=== PATIENT | female | born 1970 | race Hispanic/Latino ===

== ENCOUNTER 2024-08-01 07:48 | Day surgery (SDC) | payer OTHER ==
[~2024-08-01] VITALS: Ht 162.6 cm; Wt 86.2 kg
[~2024-08-01 07:48] MED LIST: ACETAMIN500 M2 PO; ACETAMINOPHEN325 MG PO; FAMOTIDINE20 M3 PO; FLEXERIL5 M1 PO; GABAPENTIN100 MG PO; NAPROXEN EC500 MG PO; NAPROXEN500 MG PO; OMEPRAZOLE DR40 MG PO; PEPCID20 MG PO; PEPCID40 MG PO; PROTONIX40 M2 PO; VENTOLIN HFA108 MCG IN
[2024-08-01] MEDS ORDERED: FAMOTIDINE 10MG/ML 2ML SDV IV ONE (07:50)
[2024-08-01] MEDS ORDERED: SODIUM CHLORIDE 0.9% 1,000 ML IV ONE (07:50)
[2024-08-01] MEDS ORDERED: PREVACID30 M1 PO (09:31)
[2024-08-01] MEDS ORDERED: CARAFATE1 GM/10 M1 PO (09:36)
[2024-08-01 10:30] VITALS: BP 117/84
[2024-08-01] MEDS ORDERED: GLYCOPYRROLATE 0.2 MG/ML IV ONE (11:06)
[2024-08-01] MEDS ORDERED: LIDOCAINE HCL 2% 2ML SDV IV ONE (11:06)
[2024-08-01] MEDS ORDERED: PROPOFOL 200 MG/20 ML VIAL IV ONE (11:06)
== END 2024-08-01 10:18 | disposition home or self-care (01) | DRG 382 ==
LOC: ORM 07:48
PROVIDERS: ATTEND Surgery
PROC: 0DB48ZX Excision of Esophagogastric Junction, Via Natural or Artificial Opening Endoscopic, Diagnostic (ICD-10-PCS; principal; 2024-08-01)
DX: K22.70 Barrett's esophagus without dysplasia (principal); K21.00 Gastro-esophageal reflux disease with esophagitis, without bleeding; K44.9 Diaphragmatic hernia without obstruction or gangrene; Z87.11 Personal history of peptic ulcer disease
CPT/HCPCS: J1596